=== PATIENT | male | born 1990 | race Caucasian/White ===

== ENCOUNTER 2018-09-10 10:02 | Emergency (ER) | payer OTHER ==
[~2018-09-10] VITALS: Ht 160 cm; Wt 56.7 kg
[2018-09-10] MEDS ORDERED: ADDERALL 10 MG10 MG (10:11)
[2018-09-10] MEDS ORDERED: CLARITIN-D 241 EACH PO (12:17)
[2018-09-10] MEDS ORDERED: FLONASE16 GM TOP (12:17)
== END 2018-09-10 12:35 | disposition home or self-care (01) ==
LOC: ER 10:02
DX: B34.9 Viral infection, unspecified (principal); J11.1 Influenza due to unidentified influenza virus with other respiratory manifestations

== ENCOUNTER 2019-03-25 06:00 | Day surgery (SDC) | payer OTHER ==
[~2019-03-25 06:00] MED LIST: ADDERALL 10 MG10 MG; CLARITIN-D 241 EACH PO; FLONASE16 GM TOP
== END 2019-03-25 10:30 | disposition home or self-care (01) ==
LOC: CIR.AMB 06:00
DX: N62 Hypertrophy of breast (principal)